=== PATIENT | female | born 1970 | race Caucasian/White ===

== ENCOUNTER 2017-01-05 14:08 | Emergency (ER) | payer SELFPAY ==
[~2017-01-05] VITALS: Ht 165.1 cm; Wt 86.0 kg
[~2017-01-05 14:08] MED LIST: BACT800T5 PO; CIPR500T4 PO; DICL75 PO; IBUP800T23 PO; LISI-360 PO; METO25 PO
[2017-01-05 14:23] VITALS: BP 176/100; PULSE 103; RESP 16; TEMP 98.7
--- NOTE | 2017-01-05 14:49 | RADHPO ---
EXAM DATE/TIME: 01/05/2017 14:31 [facility] COMPARISON: No previous studies available for comparison. INDICATIONS : Right great toe pain. Kicked dog 3 days ago. MEDICAL HISTORY : None. SURGICAL HISTORY : None. ENCOUNTER: Initial ACUITY: 3 days PAIN SCORE: 10/10 LOCATION: Right 1st toe. FINDINGS: A small nondisplaced sliver fracture is identified in the proximal phalanx of the great toe adjacent to the interphalangeal joint. CONCLUSION: Nondisplaced fracture of the proximal phalanx of the great toe. Elier Calle MD on January 05, 2017 at 14:46 Board Certified Radiologist. This report was verified electronically.
[2017-01-05] MEDS ORDERED: LISI10TA3 PO (15:18)
[2017-01-05] MEDS ORDERED: METO25TA3 PO (15:18)
--- NOTE | 2017-01-05 15:19 | PD ---
HPI . right great toe pain Chief Complaint: Musculoskeletal Complaint Time Seen by Provider: 15:19 Travel History International Travel<30 days: No Contact w/Intl Traveler<30days: No Traveled to known affect area: No History of Present Illness HPI 46-year-old female with multiple medical issues that were reviewed in the EMR here with complaints of right great toe pain. Patient apparently kicked 120 pound horner in the rear and and now has toe pain. She rates the pain 7/10. She has no other issues. Her bp is elevated and she did not take her medicines this morning. PFSH Past Medical History Hx Anticoagulant Therapy: Yes (81 MG ASA) Asthma: No Autoimmune Disease: No Heart Rhythm Problems: No Cancer: No Cardiovascular Problems: Yes (HTN) High Cholesterol: Yes Chest Pain: Yes Congestive Heart Failure: No COPD: No Diabetes: Yes (TYPE 2) Patient Takes Glucophage: No Diminished Hearing: No Endocrine: No Gastrointestinal Disorders: No Genitourinary: No Hypertension: Yes Immune Disorder: No Implanted Vascular Access Dvce: No Musculoskeletal: No Neurologic: No Psychiatric: No Reproductive: No Respiratory: No Immunizations Current: Yes Sleep Apnea: No ?: Not LMP: TUBALIGATION : 2 Para: 2 Miscarriage: 0 : 0 Past Surgical History Abdominal Surgery: No AICD: No Arteriovenous Shunt: No Cardiac Surgery: No Section: Yes (TIMES 2) Ear Surgery: No Endocrine Surgery: No Eye Surgery: No Genitourinary Surgery: No Gynecologic Surgery: Yes (2 sections) Insulin Pump: No Joint Replacement: No Neurologic Surgery: No Oral Surgery: No Pacemaker: No Thoracic Surgery: No Other Surgery: Yes Social History Alcohol Use: Yes (OCC) Tobacco Use: Yes (3 CIGS PER DAY) Substance Use: No Allergies-Medications (Allergen,Severity, Reaction): Coded Allergies: Ceclor (Verified Allergy, Severe, HIVES, 01/05/17) Codeine (Verified Adverse Reaction, Severe, VOMIT, 01/05/17) Reported Meds & Prescriptions Reported Meds & Active Scripts Active Tramadol (Tramadol HCl) 50 Mg Tab 50 Mg PO Q8H PRN Reported Lisinopril 10 Mg Tab 10 Mg PO DAILY Metoprolol Tartrate 25 Mg Tab 25 Mg PO BID Review of Systems General / Constitutional: No: Fever Eyes: No: Visual changes HENT: No: Headaches Cardiovascular: No: Chest Pain or Discomfort Respiratory: No: Shortness of Breath Gastrointestinal: No: Abdominal Pain Genitourinary: No: Dysuria Musculoskeletal: Positive: Pain (right great toe) Skin: No Rash Neurologic: No: Weakness Psychiatric: No: Depression Endocrine: No: Polydipsia Hematologic/Lymphatic: No: Easy Bruising Physical Exam Narrative GENERAL: AAO x 3, no acute distress, Well-nourished, well-developed patient. SKIN: Warm and dry. No visible rashes or bruising. HEAD: Normocephalic and atraumatic. EYES: No scleral icterus. No injection or drainage. ENT: No nasal drainage noted. Mucous membranes pink. Airway patent. NECK: Supple, trachea midline. No JVD. CARDIOVASCULAR: Regular rate and rhythm without murmurs, gallops, or rubs. RESPIRATORY: Breath sounds equal bilaterally. No accessory muscle use. No rhonchi or rales. GASTROINTESTINAL: Abdomen soft, non-tender, nondistended. EXTREMITIES: No cyanosis or edema. Right great toe very minimal edema, there is point tenderness. BACK: Nontender without obvious deformity. No CVA tenderness. PSYCH: AAO x 3, normal affect. Data Data Last Documented VS Vital Signs Date Time Temp Pulse Resp B/P Pulse Ox O2 Delivery O2 Flow Rate FiO2 01/05/17 14:23 98.7 103 16 176/100 Orders Toe (Min 2vws) (01/05/17 ) Shoe Post Op (01/05/17 ) MDM Medical Decision Making Medical Screen Exam Complete: Yes Emergency Medical Condition: Yes Medical Record Reviewed: Yes Differential Diagnosis great toe fracture, less likely open fracture, less likely foot sprain Narrative Course 46-year-old female with multiple medical issues that were reviewed in the EMR here with complaints of right great toe pain. Patient apparently kicked 120 pound horner in the rear and and now has toe pain. She rates the pain 7/10. She has no other issues. Her bp is elevated and she did not take her medicines this morning. There is a nondisplaced fracture of right great toe. Post op shoe provided. Recommend rest and f/u with podiatry. Discussed with patient. She thanked me for her care. Diagnosis Primary Impression: Fractured great toe Qualified Code: S92.404A - Closed nondisplaced fracture of phalanx of right great toe, unspecified phalanx, initial encounter Referrals: Patent Legal Assistant Patient Instructions: General Instructions, Toe Fracture (ED) Departure Forms: Tests/Procedures, Work Release Enter return to work date: Jan 06, 2017 Special Instructions: please allow to sit will need to see podiatry for full clearance Additional Instructions: Please return to emergency department if your symptoms return or worsen. Follow up with your primary care provider. Take medications as prescribed. You will need to follow-up with the livery car driver for further recommendations and care. We have provided you with the postop shoe to help offload on this extremity. Do not walk or stand for extended periods of time. Use ibuprofen as needed for breakthrough pain. Med/Other Pt SpecificInfo: Prescription(s) given Scripts Tramadol 50 Mg Tab50 Mg PO Q8H PRN (PAIN) #21 TAB Ref 0 Prov:Cristian Crawford MD 01/05/17 Disposition: 01 DISCHARGE HOME Condition: Stable Demetrice Early Jan 05, 2017 15:19
[2017-01-05] MEDS ORDERED: TRAM50TA PO (15:22)
== END 2017-01-05 15:45 | disposition home or self-care (01) ==
LOC: PHED 14:08 → PHEFT 15:45
DX: S92.414A Nondisplaced fracture of proximal phalanx of right great toe, initial encounter for closed fracture (principal); I10 Essential (primary) hypertension; E78.00 Pure hypercholesterolemia, unspecified; E11.9 Type 2 diabetes mellitus without complications; F17.210 Nicotine dependence, cigarettes, uncomplicated; Z79.82 Long term (current) use of aspirin; W22.8XXA Striking against or struck by other objects, initial encounter; Y99.8 Other external cause status
CPT/HCPCS: 73660; 99283; L3260

== ENCOUNTER 2017-07-31 22:05 | Emergency (ER) | payer SELFPAY ==
[~2017-07-31] VITALS: Ht 165.1 cm; Wt 83.0 kg
[~2017-07-31 22:05] MED LIST changes: -BACT800T5 PO; -CIPR500T4 PO; -DICL75 PO; -IBUP800T23 PO; -LISI-360 PO; +LISI10TA3 PO; -METO25 PO; +METO25TA3 PO; +TRAM50TA PO
[2017-07-31 22:24] VITALS: BP 206/107; PULSE 80; RESP 16; TEMP 98.6; O2SAT 98
[2017-07-31] MEDS ORDERED: SODIUM CHLORID 0.9% 500 ML INJ 500 ML IV ONE (22:30)
[2017-07-31] MEDS ORDERED: SODIUM CHLORIDE 0.9% FLUSH 10 ML FLUSH IVF PRN (22:30)
[2017-07-31] MEDS ORDERED: ONDANSETRON HCL 4 MG/2 ML VIAL IV PUSH ONE (22:30)
[2017-07-31] MEDS ORDERED: NITROGLYCERIN 0.4 MG SL 25 TABS/BTL SL ONE (22:30)
[2017-07-31] MEDS ORDERED: MORPHINE SULFATE 4 MG/ML INJ IV PUSH ONE (22:30)
[2017-07-31] MEDS ORDERED: ASPIRIN 81 MG CHEW TAB PO ONE (22:30)
--- NOTE | 2017-07-31 22:30 | PD ---
HPI Chief Complaint: chest pain Time Seen by Provider: 22:21 Travel History International Travel<30 days: No Contact w/Intl Traveler<30days: No Traveled to known affect area: No History of Present Illness HPI The patient is a 47-year-old female who presents to the emergency department via EMS for chest pain. Patient notes a 2 day history of chest pain which is left-sided, described as pressure and feels like "somebody is sitting on my chest ". The pain radiates to the left shoulder and is associated with mild shortness of breath. The patient denies any nausea, vomiting, or diaphoresis. She does note the chest pain or shortness of breath is slightly worse with exertion. She also states she has not been taking her lisinopril 10 mg twice a day and her blood pressure has been elevated. She has a history of similar symptoms in the past secondary to elevated blood pressure and states she had a stress test 2 years ago. She does note a history of hypertension, tobacco use, but denies any known history of hyperlipidemia, coronary artery disease, or diabetes. The patient does not currently have a primary physician. PFSH Past Medical History Hx Anticoagulant Therapy: Yes (81 MG ASA) Asthma: No Autoimmune Disease: No Heart Rhythm Problems: No Cancer: No Cardiovascular Problems: Yes (HTN) High Cholesterol: Yes Chest Pain: Yes Congestive Heart Failure: No COPD: No Diabetes: Yes (TYPE 2) Diminished Hearing: No Endocrine: No Gastrointestinal Disorders: No Genitourinary: No Hypertension: Yes Immune Disorder: No Implanted Vascular Access Dvce: No Musculoskeletal: No Neurologic: No Psychiatric: No Reproductive: No Respiratory: No Immunizations Current: Yes Sleep Apnea: No : 2 Para: 2 Miscarriage: 0 : 0 Past Surgical History Abdominal Surgery: No AICD: No Arteriovenous Shunt: No Cardiac Surgery: No Section: Yes (TIMES 2) Ear Surgery: No Endocrine Surgery: No Eye Surgery: No Genitourinary Surgery: No Gynecologic Surgery: Yes (2 sections) Insulin Pump: No Joint Replacement: No Neurologic Surgery: No Oral Surgery: No Pacemaker: No Thoracic Surgery: No Other Surgery: Yes Social History Alcohol Use: Yes (OCC) Tobacco Use: Yes (3 CIGS PER DAY) Substance Use: No Allergies-Medications (Allergen,Severity, Reaction): Coded Allergies: cefaclor (Unverified Allergy, Severe, HIVES, 07/31/17) codeine (Unverified Adverse Reaction, Severe, VOMIT, 07/31/17) Reported Meds & Prescriptions Reported Meds & Active Scripts Active Tramadol (Tramadol HCl) 50 Mg Tab 50 Mg PO Q8H PRN Reported Lisinopril 10 Mg Tab 10 Mg PO DAILY Metoprolol Tartrate 25 Mg Tab 25 Mg PO BID Review of Systems Except as stated in HPI: all other systems reviewed are Neg HENT: Positive: Lightheadedness Cardiovascular: Positive: Chest Pain or Discomfort, Dyspnea on exertion, No: Diaphoresis Respiratory: Positive: Shortness of Breath Gastrointestinal: No: Nausea, Vomiting, Abdominal Pain Musculoskeletal: No: Weakness, Edema Neurologic: Positive: Dizziness Physical Exam Narrative GENERAL: Awake, alert, pleasant 47-year-old female who appears her stated age and is in no acute respiratory distress. SKIN: Focused skin assessment warm/dry. Sunburn across the face and neck. HEAD: Atraumatic. Normocephalic. EYES: Pupils equal and round. No scleral icterus. No injection or drainage. ENT: No nasal bleeding or discharge. Mucous membranes pink and moist. NECK: Trachea midline. No JVD. CARDIOVASCULAR: Regular rate and rhythm. No murmur appreciated. RESPIRATORY: No accessory muscle use. Clear to auscultation. Breath sounds equal bilaterally. GASTROINTESTINAL: Abdomen soft, non-tender, nondistended. No rebound tenderness , guarding, rigidity. MUSCULOSKELETAL: No obvious deformities. No clubbing. No cyanosis. No edema. NEUROLOGICAL: Awake and alert. No obvious cranial nerve deficits. Motor grossly within normal limits. Normal speech. Nonfocal. PSYCHIATRIC: Appropriate mood and affect; insight and judgment normal. Data Data Last Documented VS Vital Signs Date Time Temp Pulse Resp B/P (MAP) Pulse Ox O2 Delivery O2 Flow Rate FiO2 07/31/17 23:30 80 16 147/80 (102) 97 Room Air 07/31/17 22:24 98.6 Orders Orders Electrocardiogram (07/31/17 22:21) Ckmb (Isoenzyme) Profile (07/31/17 22:21) Complete Blood Count With Diff (07/31/17 22:21) Comprehensive Metabolic Panel (07/31/17 22:21) Magnesium (Mg) (07/31/17 22:21) Prothrombin Time / Inr (Pt) (07/31/17 22:21) Act Partial Throm Time (Ptt) (07/31/17 22:21) Troponin I (07/31/17 22:21) Chest, Single Ap (07/31/17 22:21) Ecg Monitoring (07/31/17 22:21) Bilateral Bp Monitoring (07/31/17 22:21) Iv Access Insert/Monitor (07/31/17 22:21) Oximetry (07/31/17 22:21) Oxygen Administration (07/31/17 22:21) Aspirin Chew (Aspirin Chew) (07/31/17 22:30) Morphine Inj (Morphine Inj) (07/31/17 22:30) Sodium Chloride 0.9% Flush (Ns Flush) (07/31/17 22:30) Nitroglycerin Sl (Nitrostat Sl) (07/31/17 22:30) Sodium Chlorid 0.9% 500 Ml Inj (Ns 500 M (07/31/17 22:30) Ondansetron Inj (Zofran Inj) (07/31/17 22:30) CKMB (07/31/17 22:20) CKMB% (07/31/17 22:20) Troponin I (08/01/17 23:21) Troponin I (08/01/17 01:08) Labs Laboratory Tests Test 07/31/17 22:20 08/01/17 01:08 White Blood Count 11.5 TH/MM3 Red Blood Count 4.78 MIL/MM3 Hemoglobin 13.2 GM/DL Hematocrit 39.7 % Mean Corpuscular Volume 83.0 FL Mean Corpuscular Hemoglobin 27.5 PG Mean Corpuscular Hemoglobin Concent 33.2 % Red Cell Distribution Width 15.1 % Platelet Count 266 TH/MM3 Mean Platelet Volume 8.3 FL Neutrophils (%) (Auto) 45.9 % Lymphocytes (%) (Auto) 42.5 % Monocytes (%) (Auto) 7.0 % Eosinophils (%) (Auto) 4.0 % Basophils (%) (Auto) 0.6 % Neutrophils # (Auto) 5.3 TH/MM3 Lymphocytes # (Auto) 4.9 TH/MM3 Monocytes # (Auto) 0.8 TH/MM3 Eosinophils # (Auto) 0.5 TH/MM3 Basophils # (Auto) 0.1 TH/MM3 CBC Comment DIFF FINAL Differential Comment Prothrombin Time 9.9 SEC Prothromb Time International Ratio 0.9 RATIO Activated Partial Thromboplast Time 23.1 SEC Blood Urea Nitrogen 12 MG/DL Creatinine 0.74 MG/DL Random Glucose 123 MG/DL Total Protein 6.9 GM/DL Albumin 3.4 GM/DL Calcium Level 9.8 MG/DL Magnesium Level 1.9 MG/DL Alkaline Phosphatase 68 U/L Aspartate Amino Transf (AST/SGOT) 19 U/L Alanine Aminotransferase (ALT/SGPT) 23 U/L Total Bilirubin 0.2 MG/DL Sodium Level 138 MEQ/L Potassium Level 3.8 MEQ/L Chloride Level 108 MEQ/L Carbon Dioxide Level 23.0 MEQ/L Anion Gap 7 MEQ/L Estimat Glomerular Filtration Rate 84 ML/MIN Total Creatine Kinase 188 U/L Creatine Kinase MB 2.6 NG/ML Troponin I LESS THAN 0.02 NG/ML MDM Medical Decision Making Medical Screen Exam Complete: Yes Emergency Medical Condition: Yes Medical Record Reviewed: Yes Interpretation(s) EKG reveals normal sinus rhythm with a rate 80. Moderate intraventricular conduction delay with QRS of 111 ms. Last Impressions Chest X-Ray 07/31/172220 Signed Impressions: Service Date/Time: Monday, July 31, 2017 22:36 - CONCLUSION: No acute disease. Aaron Chong MD Laboratory Tests Test 07/31/17 22:20 08/01/17 01:08 White Blood Count 11.5 TH/MM3 Red Blood Count 4.78 MIL/MM3 Hemoglobin 13.2 GM/DL Hematocrit 39.7 % Mean Corpuscular Volume 83.0 FL Mean Corpuscular Hemoglobin 27.5 PG Mean Corpuscular Hemoglobin Concent 33.2 % Red Cell Distribution Width 15.1 % Platelet Count 266 TH/MM3 Mean Platelet Volume 8.3 FL Neutrophils (%) (Auto) 45.9 % Lymphocytes (%) (Auto) 42.5 % Monocytes (%) (Auto) 7.0 % Eosinophils (%) (Auto) 4.0 % Basophils (%) (Auto) 0.6 % Neutrophils # (Auto) 5.3 TH/MM3 Lymphocytes # (Auto) 4.9 TH/MM3 Monocytes # (Auto) 0.8 TH/MM3 Eosinophils # (Auto) 0.5 TH/MM3 Basophils # (Auto) 0.1 TH/MM3 CBC Comment DIFF FINAL Differential Comment Prothrombin Time 9.9 SEC Prothromb Time International Ratio 0.9 RATIO Activated Partial Thromboplast Time 23.1 SEC Blood Urea Nitrogen 12 MG/DL Creatinine 0.74 MG/DL Random Glucose 123 MG/DL Total Protein 6.9 GM/DL Albumin 3.4 GM/DL Calcium Level 9.8 MG/DL Magnesium Level 1.9 MG/DL Alkaline Phosphatase 68 U/L Aspartate Amino Transf (AST/SGOT) 19 U/L Alanine Aminotransferase (ALT/SGPT) 23 U/L Total Bilirubin 0.2 MG/DL Sodium Level 138 MEQ/L Potassium Level 3.8 MEQ/L Chloride Level 108 MEQ/L Carbon Dioxide Level 23.0 MEQ/L Anion Gap 7 MEQ/L Estimat Glomerular Filtration Rate 84 ML/MIN Total Creatine Kinase 188 U/L Creatine Kinase MB 2.6 NG/ML Troponin I LESS THAN 0.02 NG/ML Differential Diagnosis Differential diagnosis includes acute coronary syndrome, hypertensive urgency, hypertensive emergency, cardiomyopathy, esophageal spasm, GERD, pulmonary embolism. Narrative Course IV was established, labs are drawn and sent, and the patient was placed on cardiac telemetry monitoring and continuous pulse oximetry monitoring. EKG was ordered and interpreted. Chest x-ray was obtained. The patient was administered aspirin, nitroglycerin sublingual, morphine, Zofran, and IV fluids. I reviewed the patient's EMR, she had a negative nuclear medicine myocardial perfusion scan performed on April 15, 2015 which revealed 57% ejection fraction, no reversible defect, low risk category. The patient's repeat blood pressure after nitroglycerin and morphine was 148/80, her pain is significantly improved. The patient's pain had been ongoing for 5 hours and initial troponin is negative, therefore, repeat troponin will be performed at 3 hours. The patient had a negative stress test in 2014. Patient's symptoms may be related to hypertensive urgency, she will be restarted on her lisinopril 10 mg twice a day. The patient's second troponin was less than 0.02. The patient is medically clear for discharge and outpatient follow-up. She was prescribed her lisinopril 10 mg twice a day with 2 refills and outpatient follow-up with the [facility].. Diagnosis Primary Impression: Chest pain Qualified Codes: R07.9 - Chest pain, unspecified Additional Impression: Hypertension Qualified Codes: I10 - Essential (primary) hypertension Referrals: [facility] call for appointment Patient Instructions: General Instructions Additional Instructions: Medications as directed. Follow-up at the clinic. Return if symptoms worsen or progress. Take a baby aspirin daily. Med/Other Pt SpecificInfo: Prescription(s) given Scripts Lisinopril (Lisinopril) 10 Mg Tab 10 MG PO DAILY, #30 TAB 0 Refills Prov: Indra Ford MD 08/01/17 Disposition: 01 DISCHARGE HOME Condition: Stable Indra Ford MD Jul 31, 2017 22:30
--- NOTE | 2017-07-31 22:53 | RADRPT ---
EXAM DATE/TIME: 07/31/2017 22:36 [facility] COMPARISON: CHEST SINGLE AP, December 30, 2015, 16:13. INDICATIONS : Chest pain for 2 days. MEDICAL HISTORY : None. SURGICAL HISTORY : section. ENCOUNTER: Initial ACUITY: 2 days PAIN SCORE: 6/10 LOCATION: Left upper chest FINDINGS: A single view of the chest demonstrates the lungs to be symmetrically aerated without evidence of mas s, infiltrate or effusion. The cardiomediastinal contours are unremarkable. Osseous structures are intact. CONCLUSION: No acute disease. Aaron Chnog MD on July 31, 2017 at 22:51 Board Certified Radiologist. This report was verified electronically.
[2017-07-31 22:55] LABS: APTT (PATIENT) 23.1 SEC (24.3-30.1); INTERNATIONAL NORMALIZED RATIO 0.9 RATIO; PROTHROMBIN TIME - PATIENT 9.9 SEC (9.8-11.6)
[2017-07-31 23:01] LABS: AUTOMATED NEUTROPHIL # 5.3 TH/MM3 (1.8-7.7); BASOPHIL # 0.1 TH/MM3 (0-0.2); BASOPHIL % 0.6 % (0.0-2.0); EOSINOPHIL # 0.5 TH/MM3 (0-0.4); HEMATOCRIT 39.7 % (35.0-46.0); HEMO FLAGS DIFF FINAL; LYMPH % 42.5 % (9.0-44.0); LYMPHOCYTE # 4.9 TH/MM3 (1.0-4.8); MEAN CORPUSCULAR HEMOGLOBIN 27.5 PG (27.0-34.0); MEAN CORPUSCULAR HGB CONC 33.2 % (32.0-36.0); NEUT % 45.9 % (16.0-70.0); PLATELET COUNT 266 TH/MM3 (150-450); RED BLOOD COUNT 4.78 MIL/MM3 (4.00-5.30); RED CELL DISTRIBUTION WIDTH 15.1 % (11.6-17.2); WHITE BLOOD COUNT 11.5 TH/MM3 (4.0-11.0)
[2017-07-31 23:09] LABS: ALT (GPT) 23 U/L (10-53)
[2017-07-31 23:11] VITALS: BP_SYST 152; BP_SYST 172; BP_SYST 206; BP_DIAS 107; BP_DIAS 80; BP_DIAS 87; PULSE 85; RESP 16; O2SAT 97
[2017-07-31 23:11] LABS: ANION GAP 7 MEQ/L (5-15); AST (GOT) 19 U/L (15-37); BLOOD UREA NITROGEN 12 MG/DL (7-18); CHLORIDE 108 MEQ/L (98-107); GLOMERULAR FILTRATION RATE 84 ML/MIN (>89); MAGNESIUM 1.9 MG/DL (1.5-2.5); POTASSIUM 3.8 MEQ/L (3.5-5.1); SODIUM (NA) 138 MEQ/L (136-145)
[2017-07-31 23:13] LABS: ALKALINE PHOSPHATASE 68 U/L (45-117); CREATINE KINASE 188 U/L (26-192); TOTAL BILIRUBIN ADULT 0.2 MG/DL (0.2-1.0)
[2017-07-31 23:25] LABS: CKMB 2.6 NG/ML (0.5-3.6)
[2017-07-31 23:30] VITALS: BP 147/80; PULSE 80; RESP 16; O2SAT 97
[2017-08-01] MEDS ORDERED: LISI10TA3 PO (03:44)
--- NOTE | 2017-08-01 13:03 | EKG ---
Date Performed: 07/31/2017 Time Performed: 22:18:44 PTAGE: 47 years EKG: Sinus rhythm MODERATE INTRAVENTRICULAR CONDUCTION DELAY MODERATE VOLTAGE CRITERIA FOR LVH, CONSIDER NORMAL VARIAN T BORDERLINE ECG NO PREVIOUS TRACING DOCTOR: Linus Rojas Interpretating Date/Time 08/01/2017 12:58:59
== END 2017-08-01 03:54 | disposition home or self-care (01) ==
LOC: NEPC 22:05
DX: R07.9 Chest pain, unspecified (principal); I10 Essential (primary) hypertension; R94.31 Abnormal electrocardiogram [ECG] [EKG]; Z72.0 Tobacco use
CPT/HCPCS: 71010; 80053; 82550; 82552; 83735; 84484; 85025; 85610; 85730; 93005; 96361; 96374; 96375; 99285; J2270; J2405; J7040

== ENCOUNTER 2017-09-23 18:53 | Emergency (ER) | payer SELFPAY ==
[~2017-09-23] VITALS: Ht 165.1 cm; Wt 98.5 kg
[2017-09-23 18:59] VITALS: BP 179/89; PULSE 91; TEMP 97.9; O2SAT 99
[2017-09-23] MEDS ORDERED: MULTTAB67 PO (19:15)
[2017-09-23] MEDS ORDERED: ASPI81TA23 PO (19:15)
[2017-09-23] MEDS ORDERED: LISI10TA3 PO (19:15)
[2017-09-23] MEDS ORDERED: IBUP1TAB7 PO ×2 (19:15→21:18)
--- NOTE | 2017-09-23 20:35 | PD ---
HPI Chief Complaint: Injury Time Seen by Provider: 19:35 Travel History International Travel<30 days: No Contact w/Intl Traveler<30days: No Traveled to known affect area: No History of Present Illness HPI 47 year old female with right knee pain 4 hours. Patient reports she stepped off of a curb slightly twisting the knee and felt immediate pain in the posterior aspect. She has pain with weightbearing which is relieved with rest. She denies paresthesia or weakness in the extremity. Pain severity is moderate. PFSH Past Medical History Hx Anticoagulant Therapy: Yes (81 MG ASA) Asthma: No Autoimmune Disease: No Heart Rhythm Problems: No Cancer: No Cardiovascular Problems: Yes (HTN) High Cholesterol: Yes Chest Pain: Yes Congestive Heart Failure: No COPD: No Diabetes: Yes (TYPE 2) Patient Takes Glucophage: No Diminished Hearing: No Endocrine: No Gastrointestinal Disorders: No Genitourinary: No Hypertension: Yes Immune Disorder: No Implanted Vascular Access Dvce: No Musculoskeletal: No Neurologic: No Psychiatric: No Reproductive: No Respiratory: No Immunizations Current: Yes Sleep Apnea: No Tetanus Vaccination: < 5 Years Influenza Vaccination: No ?: Not : 2 Para: 2 Miscarriage: 0 : 0 Past Surgical History Abdominal Surgery: No AICD: No Arteriovenous Shunt: No Cardiac Surgery: No Section: Yes (X2) Ear Surgery: No Endocrine Surgery: No Eye Surgery: No Genitourinary Surgery: No Gynecologic Surgery: Yes (2 sections) Insulin Pump: No Joint Replacement: No Neurologic Surgery: No Oral Surgery: No Pacemaker: No Thoracic Surgery: No Other Surgery: Yes Social History Alcohol Use: No Tobacco Use: Yes (3/4 pk) Substance Use: No Allergies-Medications (Allergen,Severity, Reaction): Coded Allergies: cefaclor (Unverified Allergy, Severe, HIVES, 09/23/17) codeine (Unverified Adverse Reaction, Severe, VOMIT, 09/23/17) Reported Meds & Prescriptions Reported Meds & Active Scripts Active Ibuprofen 800 Mg Tab 800 Mg PO Q6HR PRN Reported Multiple Vitamin 1 Tab 1 Tab PO DAILY Aspirin EC (Aspirin) 81 Mg Tabdr 81 Mg PO DAILY Ibuprofen 800 Mg Tab 800 Mg PO Q8H Lisinopril 10 Mg Tab 10 Mg PO BID Metoprolol Tartrate 25 Mg Tab 25 Mg PO BID Review of Systems Except as stated in HPI: all other systems reviewed are Neg Physical Exam Narrative GENERAL: Alert well-appearing female resting comfortably on stretcher SKIN: Warm and dry. HEAD: Normocephalic. EYES: No scleral icterus. No injection or drainage. NECK: Supple, trachea midline. No JVD or lymphadenopathy. CARDIOVASCULAR: Regular rate and rhythm without murmurs, gallops, or rubs. RESPIRATORY: Breath sounds equal bilaterally. No accessory muscle use. GASTROINTESTINAL: Abdomen soft, non-tender, nondistended. MUSCULOSKELETAL: No cyanosis, or edema. Right lower extremity: Tenderness to the anterior and posterior aspect of the knee. No deformity noted. No joint effusion. The knee is in full extension and she has limited flexion due to pain. 2+ popliteal, posterior tibial, dorsal pedis pulses. Extremities warm color is normal. Brisk cap refill. BACK: Nontender without obvious deformity. No CVA tenderness. Data Data Last Documented VS Vital Signs Date Time Temp Pulse Resp B/P (MAP) Pulse Ox O2 Delivery O2 Flow Rate FiO2 09/23/17 19:16 (119) 09/23/17 18:59 97.9 91 99 Orders Orders Knee, Complete (4vws) (09/23/17 ) ^ Knee Immobilizer (09/23/17 20:51) Crutches (09/23/17 21:18) Ed Discharge Order (09/23/17 21:18) MDM Medical Decision Making Medical Screen Exam Complete: Yes Emergency Medical Condition: Yes Interpretation(s) X-ray the right knee: Negative for fracture read by me Differential Diagnosis Knee sprain, strain, fracture Narrative Course 47-year-old female with knee pain after twisting the knee this afternoon. She is pain with weightbearing which is slightly relieved with rest. Her extremity is neurovascular intact. Diagnosis Primary Impression: Knee sprain Qualified Codes: S83.91XA - Sprain of unspecified site of right knee, initial encounter Referrals: Orthopedist Departure Forms: Tests/Procedures, Work Release Enter return to work date: Sep 28, 2017 Special Instructions: No prolonged standing until weightbearing as possible Additional Instructions: Where the knee immobilizer as directed. Use crutches for weightbearing. History of present illness ibuprofen as needed for pain. Ice and elevate the extremity. Make an appointment for follow-up with your primary doctor or orthopedic doctor Scripts Ibuprofen (Ibuprofen) 800 Mg Tab 800 MG PO Q6HR Y for PAIN, #40 TAB 0 Refills Prov: Muriel Uriarte 09/23/17 Disposition: 01 DISCHARGE HOME Condition: Stable Muriel Uriarte Sep 23, 2017 20:35
--- NOTE | 2017-09-23 21:32 | RADRPT ---
EXAM DATE/TIME: 09/23/2017 20:02 [facility] COMPARISON: No previous studies available for comparison. INDICATIONS : Right knee pain; patient states heard a popping when walking today. MEDICAL HISTORY : None. SURGICAL HISTORY : None. ENCOUNTER: Initial ACUITY: 1 day PAIN SCORE: 10/10 LOCATION: Right posterior knee. FINDINGS: The knee joint is normally aligned. There are mild spurring seen at the medial femoral condyle, media l tibial plateau, and the lateral tibial plateau. There are several calcific densities seen posterior ly measuring up to 1.8 cm likely related to loose bodies. No fracture is seen. There is a minimal idalia nt effusion. CONCLUSION: 1. Mild spurring. 2. Multiple calcific densities seen posteriorly likely related to loose bodies. 3. Minimal effusion. Montrell Juárez MD on September 23, 2017 at 21:28 Board Certified Radiologist. This report was verified electronically.
== END 2017-09-23 21:34 | disposition home or self-care (01) ==
LOC: PHEFT 18:53
DX: S83.91XA Sprain of unspecified site of right knee, initial encounter (principal); X50.1XXA Overexertion from prolonged static or awkward postures, initial encounter
CPT/HCPCS: 29515; 73564; 99283; E0113